=== PATIENT | female | born 1950 | race Caucasian/White ===

== ENCOUNTER 2023-11-14 06:17 | Day surgery (SDC) | payer MEDICARE, OTHER ==
[2023-11-13 10:36] LABS: BASOPHILS % (AUTO) 0.6 % (0-1); EOSINOPHILS # (AUTO) 0.1 X10'3 (0-0.9); EOSINOPHILS % (AUTO) 1.9 % (0-6); HEMATOCRIT 40.4 % (35.0-45.0); HEMOGLOBIN 13.4 g/dl (12.0-16.0); LYMPHOCYTES # (AUTO) 1.4 X10'3 (1.1-4.8); LYMPHOCYTES % (AUTO) 24.7 % (21-51); MEAN CORPUSCULAR HEMOGLOBIN 29.9 PG (27.0-31.0); MEAN CORPUSCULAR HGB CONC 33.2 g/dL (33.0-36.5); MEAN PLATELET VOLUME 7.6 FL (7.4-10.4); MONOCYTES # (AUTO) 0.5 X10'3 (0-0.9); MONOCYTES % (AUTO) 8.6 % (2-12); NEUTROPHILS # (AUTO) 3.6 X10'3 (1.8-7.7); NEUTROPHILS % (AUTO) 64.2 % (42-75); PLATELET COUNT 193 X10'3 (140-440); RED BLOOD COUNT 4.49 X10'6 (4.20-5.60); RED CELL DISTRIBUTION WIDTH 14.8 % (11.5-14.5); WHITE BLOOD COUNT 5.6 X10'3 (4.5-11.0)
[2023-11-13 10:57] LABS: APTT 27 SECONDS (22-32); PROTHROMBIN TIME 10.6 SECONDS (9.0-12.0)
[2023-11-13 10:59] LABS: ALBUMIN 3.5 G/DL (3.4-5.0); ANION GAP 6 (8-16); BLOOD UREA NITROGEN 18 MG/DL (7-18); BUN/CREATININE RATIO 27.7 (10.0-20.0); CHLORIDE 105 MMOL/L (99-107); CREATININE 0.65 MG/DL (0.40-0.90); GLUCOSE 101 MG/DL (70-104); POTASSIUM 4.2 MMOL/L (3.5-5.1); SODIUM 142 MMOL/L (135-145); TOTAL CARBON DIOXIDE 31.5 MMOL/L (24-32); eGFR 90 ML/MIN
[2023-11-14] VITALS (14 sets, daily range): BP systolic 92–129; BP diastolic 40–85; PULSE 48–65; RESP 10–16; TEMP 97.9; O2SAT 94–98
[~2023-11-14] VITALS: Ht 172.7 cm; Wt 70.8 kg
[2023-11-14] MEDS ORDERED: OMEG100036 PO (06:43)
[2023-11-14] MEDS ORDERED: ESTR0.5T28 PO (06:43)
[2023-11-14] MEDS ORDERED: ATOR40TA72 PO (06:43)
[2023-11-14] MEDS ORDERED: CYAN-116 PEG (06:43)
[2023-11-14] MEDS ORDERED: LEVO75TA7 PO (06:43)
[2023-11-14] MEDS ORDERED: MAGN400T39 PO (06:43)
[2023-11-14] MEDS ORDERED: ceFAZolin 2,000MG in D5W 100mL IV ONE (06:45)
[2023-11-14] MEDS ORDERED: ceFAZolin 1000mg inj ONE (07:32)
[2023-11-14] MEDS ORDERED: midazolam 1 mg/ML 2ml injection ONE (07:32)
[2023-11-14] MEDS ORDERED: fentaNYL/PF 50MCG/1 ML 2ML syringe ONE (07:32)
[2023-11-14] MEDS ORDERED: LIDOcaine 1% W/epiNEPHrine 1:100,000 20ml vial ONE (07:32)
[2023-11-14] MEDS ORDERED: normal saline 1,000 ML IV SCH (07:40)
[2023-11-14] MEDS ORDERED: HYDROcodone/acetaminophen 10/325mg tab PO PRN (10:00)
[2023-11-14] MEDS: vancomycin/NS 1 GM ADD-VANTAGE 250 ML X 1 DOSE IV ONE (11:20)
[2023-11-14] MEDS: HYDROcodone/acetaminophen 5mg/325mg tablet PO PRN (14:15)
[2023-11-14] MEDS ORDERED: CEPH-585 PO (18:11)
== END 2023-11-14 15:55 | disposition home or self-care (01) ==
LOC: SSTAY O 06:17
PROVIDERS: ATTEND Internal Medicine Cardiovascular Disease
DX: I49.5 Sick sinus syndrome (principal); E03.9 Hypothyroidism, unspecified; E78.5 Hyperlipidemia, unspecified; G47.00 Insomnia, unspecified; Z79.890 Hormone replacement therapy; Z79.899 Other long term (current) drug therapy; Z98.891 History of uterine scar from previous surgery; Z98.890 Other specified postprocedural states; Z80.9 Family history of malignant neoplasm, unspecified
CPT/HCPCS: 33208; 36415; 71046; 80048; 85025; 85610; 85730; 93005; 99152; 99153; A4565; A6402; C1785; C1898; J0690; J2250; J3010; J3370; J3490; J7030; Z7610; A6449